=== PATIENT | male | born 1945 | race Caucasian/White ===

== ENCOUNTER 2018-05-11 19:20 | Emergency (ER) | payer OTHER ==
[~2018-05-11] VITALS: Ht 190.5 cm; Wt 93.4 kg
[~2018-05-11 19:20] MED LIST: LEVOTHYROXINE125 MCG PO; METOPROLOL SUCC25 MG PO; OMEPRAZOLE40 MG PO; PROCTOSOL-HC28.35 GM; TRIAMCINOLONE A15 G1; TUMS200 MG
--- OUTSIDE RECORDS SUMMARY | 2018-05-11 19:25 | XMS REPORT ---
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 Allergies, Adverse Reactions, Alerts This patient has no known allergies or adverse reactions. Medications This patient has no known medications. Results Test Description Test Time Test Comments Text Results Atomic Results Result Comments CT BRAIN WO [place] [address] Patient Name: MELE COCHRAN MR #: [id number] : 1945 Age/Sex: 72/M Req #: [id number] Adm Physician: Ordered by: FRED ALFONSO MD Report #: [id number] Location: ER Room/Bed: Procedure: [id number] CT/CT BRAIN WO Exam Date: 05/07/17 Exam Time: 0645 REPORT STATUS: Signed EXAMINATION: Head CT HISTORY: Dizziness COMPARISON: Head CT on 01/04/2016 and MRI 01/05/2016 TECHNIQUE: Multidetector axial images were obtained without contrast from the foramen magnum to the vertex . The images were reconstructed using brain and bone algorithms. Thin section brain images were reformatted into coronal and sagittal planes. Motion/streaking artifact limits the evaluation of the skull base and posterior cranial fossa. FINDINGS: Parenchyma: 1. Unchanged mild white matter chronic microvascular ischemic changes. 2. No mass or hemorrhage. No CT evidence of acute territorial vascular insult. Extra-axial spaces:No abnormal density. No extra-axial fluid collections Brain volume: Normal for age. Ventricles: No hydrocephalus or displacement. Arteries: No density suggestive of thrombus. Dural sinuses: No abnormal density. Extra-axial spaces: No abnormal density. Foramen magnum: No mass, Chiari malformation, or basilar invagination. Sella: No obvious mass. Paranasal/mastoid sinuses: Imaged portions unremarkable. Skull/Scalp: No lytic or blastic lesions. No fractures. IMPRESSION: 1. No acute intracranial hemorrhage or cortical infarcts. 2. Unchanged mild chronic microvascular ischemic changes. Signed by: Dr. Adalberto Alexander M.D. on 05/07/2017 7:16 AM Dictated By: ADALBERTO ALEXANDER MD 5 Transcribed By: NILAM on 05/07/17715 COPY TO: FRED ALFONSO MD
[2018-05-11 20:01] LABS: BASOPHILS % 0.7 % (0.0-1.0); EOSINOPHILS # (AUTO) 0.2 (0.0-0.4); EOSINOPHILS % 2.7 % (0.0-6.0); HEMATOCRIT 46.1 % (38.2-49.6); HEMOGLOBIN 16.8 g/dL (14.0-18.0); LYMPHOCYTES # (AUTO) 2.1 (1.0-3.2); LYMPHOCYTES % 37.7 % (18.0-39.1); MEAN CORPUSCULAR HEMOGLOBIN 34.3 pg (28-32); MEAN CORPUSCULAR HGB CONC 36.4 g/dL (31-35); MEAN CORPUSCULAR VOLUME 94.1 fL (81-99); MONOCYTES # (AUTO) 0.5 (0.2-0.8); NEUTROPHILS # (AUTO) 2.9 (2.1-6.9); NEUTROPHILS % 50.7 % (38.7-80.0); PLATELET COUNT 108 x10e3/uL (140-360); RED CELL DISTRIBUTION WIDTH 12.6 % (11.7-14.4)
[2018-05-11 20:06] LABS: INR 0.86; PROTHROMBIN TIME 12.5 seconds (11.9-14.5)
[2018-05-11 20:07] LABS: PARTIAL THROMBOPLASTIN TIME 29.5 seconds (23.8-35.5)
[2018-05-11 20:16] LABS: ALANINE AMINOTRANSFERASE 22 IU/L (0-55); ALBUMIN 4.1 g/dL (3.5-5.0); ALBUMIN/GLOBULIN RATIO 1.4 (0.8-2.0); ALKALINE PHOSPHATASE 152 IU/L (40-150); ANION GAP 14.9 mmol/L (8-16); BLOOD UREA NITROGEN 16 mg/dL (7-26); BUN/CREATININE RATIO 19 (6-25); CALCIUM 9.6 mg/dL (8.4-10.2); CARBON DIOXIDE 26 mmol/L (22-29); CHLORIDE 106 mmol/L (98-107); CREATINE KINASE 59 IU/L (30-200); CREATININE, SERUM 0.85 mg/dL (0.72-1.25); EST GLOMERULAR FILTRATION RATE > 60 ML/MIN (60-); GLUCOSE 132 mg/dL (74-118); MAGNESIUM 2.4 MG/DL (1.3-2.1); POTASSIUM 3.9 mmol/L (3.5-5.1); SODIUM 143 mmol/L (136-145)
--- NOTE | 2018-05-11 20:47 | Diagnostic Imaging Report ---
EXAM: CHEST SINGLE (PORTABLE), AP 1 view INDICATION: Chest pain COMPARISON: AP view of the chest May 11, 2018 FINDINGS: LINES/TUBES: None LUNGS: No consolidations or edema. PLEURA: No effusions or pneumothorax. HEART AND MEDIASTINUM: Normal size and contour. BONES AND SOFT TISSUES: No acute findings. IMPRESSION: No acute thoracic abnormality. Signed by: Dr. Eusebia Mackey M.D. on 05/11/2018 8:43 PM
[2018-05-12 01:13] LABS: CREATINE KINASE MB 1.6 ng/mL (0-5.0)
[2018-05-12 01:43] VITALS: BP 121/83
== END 2018-05-12 01:49 | disposition home or self-care (01) ==
LOC: ER 19:20
DX: R00.2 Palpitations (principal); Z87.891 Personal history of nicotine dependence
CPT/HCPCS: 36415; 71045; 80053; 82550; 82553; 83735; 84484; 85025; 85610; 85730; 99284

== ENCOUNTER 2018-06-06 05:14 | Inpatient (IN) | payer OTHER ==
[~2018-06-06] VITALS: Ht 190.5 cm; Wt 91.8 kg
[2018-06-06] MEDS ORDERED: CEFTRIAXONE SOD 1 GM VIAL ONE (05:27)
[2018-06-06] MEDS ORDERED: GENTAMICIN 80MG/NS 100 ML 200 ML IV ONE (05:27)
[2018-06-06] MEDS ORDERED: BELLADONNA/OPIUM 60 MG SUPP PR ONE (06:35)
[2018-06-06] MEDS ORDERED: IOPAMIDOL 610MG/1ML 300 MG/ML VIAL IV ONE (06:35)
[2018-06-06] MEDS: D5.45%NS/KCL 20MEQ 1,000 ML IV SCH ×2 (11:08→18:00)
[2018-06-06] MEDS ORDERED: DIPHENHYDRAMINE HCL 25 MG CAP PO PRN (11:15)
[2018-06-06] MEDS ORDERED: ONDANSETRON HCL INJ 2 MG/ML VIAL IV PRN (11:15)
[2018-06-06] MEDS ORDERED: DIPHENHYDRAMINE HCL INJ 50 MG/ML VIAL IM PRN (11:15)
[2018-06-06] MEDS ORDERED: ACETAMINOPHEN/CODEINE 300MG - 30MG TAB PO PRN (11:15)
[2018-06-06] MEDS ORDERED: LEVOFLOXACIN 500 MG TAB PO SCH (13:00)
[2018-06-06 15:42] VITALS: BP 106/65
[2018-06-06 16:05] VITALS: BP 106/65
[2018-06-06] MEDS: DOCUSATE SODIUM 100 MG CAP PO SCH (17:00)
[2018-06-06 17:01] VITALS: BP 106/65
[2018-06-06] MEDS: LEVOFLOXACIN 500 MG TAB PO SCH (17:18)
[2018-06-06] MEDS ORDERED: LIDOCAINE HCL 2% LOCAL INJ 5 ML SDV VIAL INJ ONE (17:44)
[2018-06-06] MEDS ORDERED: SEVOFLURANE INHAL SOLN 250 ML PEN BTL ONE (17:44)
[2018-06-06] MEDS ORDERED: DEXAMETHASONE SOD PHOS INJ 4 MG/ML VIAL ONE (17:44)
[2018-06-06] MEDS ORDERED: PROPOFOL IV EMULSION 10 MG/ML 20 ML VIAL ONE (17:44)
[2018-06-06] MEDS ORDERED: ONDANSETRON HCL INJ 2 MG/ML VIAL ONE (17:44)
[2018-06-06] MEDS ORDERED: MIDAZOLAM HCL 2 MG/2 ML VIAL ONE (17:50)
[2018-06-06] MEDS ORDERED: FENTANYL CITRATE/PF 100MCG/2 ML INJ ONE (17:50)
[2018-06-06 20:00] VITALS: BP 112/58
[2018-06-06 20:45] VITALS: BP 112/58
--- NOTE | 2018-06-06 22:40 | Operative Report ---
DATE OF PROCEDURE: June 06, 2018 PREOPERATIVE DIAGNOSES 1. Obstructive BPH. 2. Overactive bladder. POSTOPERATIVE DIAGNOSES 1. Obstructive BPH. 2. Overactive bladder. OPERATIONS PERFORMED 1. Cystourethroscopy with bilateral ureteral catheterization and retrograde ureteropyelography (separate procedure performed to evaluate the upper tracts in light of the severely overactive bladder). 2. Interpretation of retrograde ureteropyelography. 3. Supervision of fluoroscopy. No radiologist present. 4. Cystourethroscopy with transurethral resection of the prostate utilizing the plasma button electrode (separate performed for the obstructive BPH). ANESTHESIA: General. COMPLICATIONS: None. CLINICAL SUMMARY: Rik Neely is a 73-year-old man with longstanding obstructive BPH. He has failed Flomax, Jeniffer, Cardura, as well as natural supplements for treating his BPH. He has also failed transurethral microwave thermotherapy. He has urge-type urinary incontinence and elects to proceed with surgery as planned. He is aware of the risks of bleeding, infection, injury to adjacent structures, incontinence, impotence, need for additional procedures, and retrograde ejaculation and elected to proceed. OPERATIVE PROCEDURE IN DETAIL: Informed consent was verified. Rik Neely was properly identified, taken to operating room, placed on the cystoscopy table in supine position. Anesthesia was uneventfully begun. The patient was then carefully and gently repositioned in dorsal lithotomy position with all pressure points well padded. His genitalia were prepared and draped in usual sterile fashion. A 22.5-[place] cystoscope sheath with the visual obturator in place was atraumatically inserted into the patient's urethra. It was guided down the unremarkable distal urethra through some mild narrowing at the bulbar region through the normal sphincteric region through the prostate bed, were significant for mostly bilobar BPH with kissing lateral lobes and a small median lobe. Panendoscopy of urinary bladder revealed grade-1 trabeculations, but no tumors, no stones, and no diverticula. Normally positioned and configured ureteral orifices were identified. An 8-Korean catheter was used to cannulate each ureter and retrograde ureteropyelograms were performed. Interpretation of retrograde ureteropyelography: Contrast was instilled in retrograde fashion bilaterally. There were no tumors, no stones, and no diverticula. Unobstructed drainage was observed bilaterally fluoroscopically. There was tortuosity in the right ureter as it coursed over the iliac vessels. We atraumatically placed the continuous flow resectoscope sheath and then proceeded with utilizing the plasma button electrode. We vaporized the prostate from the bladder neck too, but never past the verumontanum and down to the surgical capsule circumferentially. This resulted in a wide-open prostatic channel. Excellent hemostasis was obtained with pinpoint cautery. Of note should be that we released prostatic stones at the apical region posteriorly. The resectoscope was withdrawn. Stoddard catheter was placed. It was placed in continuous irrigation with completely clear efflux. A belladonna and opium suppository was placed revealing a 40-g prostate that was smooth and non-fluctuant without any nodules. The patient was then uneventfully reversed from anesthesia and taken to recovery room in stable condition. There were no complications to the procedure. He tolerated the procedure well. Explicit postop instructions were given and will proceed with routine postoperative care. Job#: [id number] CQ
[2018-06-07] VITALS (7 sets, daily range): BP systolic 93–145; BP diastolic 53–80
[2018-06-07] MEDS: D5.45%NS/KCL 20MEQ 1,000 ML IV SCH (02:32)
[2018-06-07 05:49] LABS: BASOPHILS % 0.5 % (0.0-1.0); EOSINOPHILS # (AUTO) 0.1 (0.0-0.4); EOSINOPHILS % 1.8 % (0.0-6.0); HEMATOCRIT 43.1 % (38.2-49.6); HEMOGLOBIN 15.5 g/dL (14.0-18.0); LYMPHOCYTES # (AUTO) 1.3 (1.0-3.2); LYMPHOCYTES % 20.1 % (18.0-39.1); MEAN CORPUSCULAR HEMOGLOBIN 34.1 pg (28-32); MEAN CORPUSCULAR VOLUME 94.9 fL (81-99); MONOCYTES # (AUTO) 0.7 (0.2-0.8); MONOCYTES % 10.5 % (4.4-11.3); NEUTROPHILS # (AUTO) 4.4 (2.1-6.9); NEUTROPHILS % 66.8 % (38.7-80.0); PLATELET COUNT 111 x10e3/uL (140-360); RED BLOOD COUNT 4.54 x10e6/uL (4.3-5.7); RED CELL DISTRIBUTION WIDTH 11.9 % (11.7-14.4)
[2018-06-07 06:17] LABS: ANION GAP 8.8 mmol/L (8-16); BLOOD UREA NITROGEN 10 mg/dL (7-26); BUN/CREATININE RATIO 14 (6-25); CALCIUM 8.9 mg/dL (8.4-10.2); CARBON DIOXIDE 27 mmol/L (22-29); CHLORIDE 106 mmol/L (98-107); CREATININE, SERUM 0.74 mg/dL (0.72-1.25); EST GLOMERULAR FILTRATION RATE > 60 ML/MIN (60-); GLUCOSE 116 mg/dL (74-118); POTASSIUM 3.8 mmol/L (3.5-5.1); SODIUM 138 mmol/L (136-145)
[2018-06-07] MEDS: DOCUSATE SODIUM 100 MG CAP PO SCH ×2 (09:00→16:58)
--- NOTE | 2018-06-07 09:18 | History and Physical ---
CHIEF COMPLAINT 1. Status post cystourethroscopy with bilateral ureteral catheterization and retrograde ureteropyeloplasty. 2. Hematuria. 3. Baseline obstructive enlarged prostate, BPH along with overactive urinary bladder. SUMMARY: Patient is a 73-year-old male, patient of Dr. Arnoldo Hall, status post cystourethroscopy with bilateral ureteral catheterization and retrograde ureteropyelography. The patient is status post TURP procedures. The patient is stable at this time. He does have urinary hematuria and is getting continuous urinary bladder irrigation. The patient is otherwise stable at this time. PAST MEDICAL HISTORY: Enlarged prostate, overactive urinary bladder, hypothyroidism. PAST SURGICAL HISTORY: Noncontributory. SOCIAL HISTORY: Patient does not smoke or use alcohol. No recreational drugs. ALLERGIES: ASPIRIN AND IBUPROFEN. MEDICATIONS: Levothyroxine 125 mcg daily. REVIEW OF SYSTEMS: Hematuria. PHYSICAL EXAMINATION VITAL SIGNS: Temperature is 98, blood pressure 145/70, pulse rate 66, respirations 18. GENERAL: Patient is not in acute distress. HEENT: Normocephalic, atraumatic and nonicteric. NECK: Supple grossly. PULMONARY: Clear. CARDIOVASCULAR: Regular rate and rhythm. ABDOMEN: Soft. : Stoddard catheter in place. Hematuria. EXTREMITIES: No cyanosis or edema. NEUROLOGICAL: No gross focal deficit. LABORATORY: Sodium is 138, potassium 3.8, chloride 106, bicarb 27, BUN 10, creatinine 0.7, glucose 116. WBC 6.5, hemoglobin 15.5, hematocrit 43, and platelets are 111,000. IMPRESSION 1. Status post transurethral resection of prostate secondary to enlarged prostate. 2. Status post cystourethroscopy with bilateral ureteral catheterization and retrograde ureteropyelography. 3. Hypothyroidism, baseline. PLAN: Continue home medications. Continue with urinary bladder irrigation. Repeat lab work in the morning. Will monitor the patient closely. The patient will not be discharged home until the urine is clean without clot and bleeding. Job#: [id number] GUNNAR
[2018-06-07] MEDS: SODIUM CHLORIDE 0.9% 1000ML 1,000 ML IV SCH ×2 (09:45→18:30)
[2018-06-07] MEDS: LEVOTHYROXINE SODIUM 125 MCG TAB PO SCH (09:56)
[2018-06-07] MEDS: LEVOFLOXACIN 500 MG TAB PO SCH (16:58)
[2018-06-08] VITALS: BP 108/63
[2018-06-08 02:03] VITALS: BP 108/63
[2018-06-08] MEDS: SODIUM CHLORIDE 0.9% 1000ML 1,000 ML IV SCH ×2 (03:38→14:30)
[2018-06-08 04:00] VITALS: BP 107/63
[2018-06-08] MEDS: LEVOTHYROXINE SODIUM 125 MCG TAB PO SCH (05:24)
[2018-06-08 06:08] LABS: BASOPHILS % 0.5 % (0.0-1.0); EOSINOPHILS # (AUTO) 0.2 (0.0-0.4); EOSINOPHILS % 3.1 % (0.0-6.0); HEMATOCRIT 43.3 % (38.2-49.6); HEMOGLOBIN 15.4 g/dL (14.0-18.0); LYMPHOCYTES # (AUTO) 1.3 (1.0-3.2); LYMPHOCYTES % 20.5 % (18.0-39.1); MEAN CORPUSCULAR HEMOGLOBIN 33.9 pg (28-32); MEAN CORPUSCULAR HGB CONC 35.6 g/dL (31-35); MEAN CORPUSCULAR VOLUME 95.4 fL (81-99); MONOCYTES # (AUTO) 0.6 (0.2-0.8); MONOCYTES % 10.2 % (4.4-11.3); NEUTROPHILS % 65.5 % (38.7-80.0); PLATELET COUNT 107 x10e3/uL (140-360); RED BLOOD COUNT 4.54 x10e6/uL (4.3-5.7); RED CELL DISTRIBUTION WIDTH 12.1 % (11.7-14.4)
[2018-06-08 08:00] VITALS: BP 112/73
[2018-06-08] MEDS: DOCUSATE SODIUM 100 MG CAP PO SCH ×2 (08:38→17:06)
[2018-06-08 09:27] LABS: ANION GAP 11.8 mmol/L (8-16); BLOOD UREA NITROGEN 10 mg/dL (7-26); BUN/CREATININE RATIO 13 (6-25); CALCIUM 8.9 mg/dL (8.4-10.2); CARBON DIOXIDE 25 mmol/L (22-29); CHLORIDE 108 mmol/L (98-107); CREATININE, SERUM 0.75 mg/dL (0.72-1.25); EST GLOMERULAR FILTRATION RATE > 60 ML/MIN (60-); GLUCOSE 97 mg/dL (74-118); POTASSIUM 3.8 mmol/L (3.5-5.1); SODIUM 141 mmol/L (136-145)
[2018-06-08 13:25] VITALS: BP 103/66
[2018-06-08 16:59] VITALS: BP 126/83
[2018-06-08] MEDS: LEVOFLOXACIN 500 MG TAB PO SCH (17:06)
== END 2018-06-08 18:30 | disposition home or self-care (01) | DRG 713 ==
LOC: OR 05:14 → PACU V 11:10 → MED/SURG 15:02
PROVIDERS: ADMIT Internal Medicine; ATTEND Internal Medicine
PROC: BT141ZZ Fluoroscopy of Kidneys, Ureters and Bladder using Low Osmolar Contrast (ICD-10-PCS; 2018-06-06)
PROC: 0VT08ZZ Resection of Prostate, Via Natural or Artificial Opening Endoscopic (ICD-10-PCS; principal; 2018-06-06 07:00)
PROC: 0TJB8ZZ Inspection of Bladder, Via Natural or Artificial Opening Endoscopic (ICD-10-PCS; 2018-06-06 07:00)
DX: N40.1 Benign prostatic hyperplasia with lower urinary tract symptoms (principal); N13.8 Other obstructive and reflux uropathy; E03.9 Hypothyroidism, unspecified; N32.81 Overactive bladder; N39.41 Urge incontinence; R35.0 Frequency of micturition; N52.9 Male erectile dysfunction, unspecified
CPT/HCPCS: 36415; 74420; 80048; 83735; 84132; 85025; 96360; J0696; J1100; J1580; J2001; J2250; J2405; J7030

== ENCOUNTER 2018-07-11 11:25 | Emergency (ER) | payer MEDICARE, OTHER ==
[~2018-07-11] VITALS: Ht 190.5 cm; Wt 91.6 kg
--- NOTE | 2018-07-11 11:38 | NUR ---
DR. CARDENAS CALLED, HE IS COVERING FOR Jus LITTLEJOHN
[2018-07-11] MEDS ORDERED: LIDOCAINE JELLY 2% 10ML URO-JET TOP ONE (12:15)
--- NOTE | 2018-07-11 12:20 | NUR ---
attempted to insert armenta, 20fr coude unsucessful. met restriction less then 1cm in urethra. informed ER MD. went to get smaller catheters. upon return, patient expressed that he went to the restroom for a BM and was able to void. reported he felt he emptied his bladder. informed ER MD was directed to complete bladder scan. 62ml per bladder scan. report printed, shown to er md and placed into chart.
[2018-07-11 14:17] LABS: CLARITY,URINE SL CLOUDY (CLEAR); COLOR,URINE STRAW (YELLOW); LEUKOCYTE ESTERASE ,URINE TRACE (NEGATIVE); NITRITE,URINE NEGATIVE (NEGATIVE); PROTEIN,URINE DIPSTICK 2+ (NEGATIVE)
[2018-07-11 14:18] LABS: BILIRUBIN,URINE NEGATIVE (NEGATIVE); KETONES,URINE NEGATIVE (NEGATIVE); URINE UROBILINOGEN 0.2 mg/dL (0.2 - 1)
[2018-07-11 14:27] LABS: BACTERIA,URINE RARE /HPF; RBC,URINE 21-50 /HPF (0-5); WBC,URINE (MAN) 0-5 /HPF (0-5)
== END 2018-07-11 15:27 | disposition home or self-care (01) ==
LOC: ER 11:25
DX: R33.9 Retention of urine, unspecified (principal); E03.9 Hypothyroidism, unspecified
CPT/HCPCS: 51700; 81001; 87086; 99284

== ENCOUNTER 2018-07-27 08:53 | Emergency (ER) | payer MEDICARE ==
[~2018-07-27] VITALS: Ht 190.5 cm; Wt 93.4 kg
[2018-07-27] MEDS ORDERED: LIDOCAINE JELLY 2% 10ML URO-JET ONE (09:31)
[2018-07-27] MEDS ORDERED: LIDOCAINE JELLY 2% 10ML URO-JET TOP ONE (09:45)
[2018-07-27 09:53] LABS: BASOPHILS % 0.5 % (0.0-1.0); EOSINOPHILS # (AUTO) 0.1 (0.0-0.4); EOSINOPHILS % 1.9 % (0.0-6.0); HEMATOCRIT 46.7 % (38.2-49.6); HEMOGLOBIN 16.4 g/dL (14.0-18.0); LYMPHOCYTES % 16.6 % (18.0-39.1); MEAN CORPUSCULAR HEMOGLOBIN 33.1 pg (28-32); MEAN CORPUSCULAR HGB CONC 35.1 g/dL (31-35); MEAN CORPUSCULAR VOLUME 94.3 fL (81-99); MONOCYTES # (AUTO) 0.4 (0.2-0.8); MONOCYTES % 6.6 % (4.4-11.3); NEUTROPHILS # (AUTO) 4.6 (2.1-6.9); NEUTROPHILS % 74.1 % (38.7-80.0); PLATELET COUNT 106 x10e3/uL (140-360); RED BLOOD COUNT 4.95 x10e6/uL (4.3-5.7); RED CELL DISTRIBUTION WIDTH 12.5 % (11.7-14.4)
[2018-07-27 10:05] LABS: CLARITY,URINE SL CLOUDY (CLEAR); COLOR,URINE YELLOW (YELLOW); LEUKOCYTE ESTERASE ,URINE NEGATIVE (NEGATIVE); NITRITE,URINE NEGATIVE (NEGATIVE); PROTEIN,URINE DIPSTICK 2+ (NEGATIVE)
[2018-07-27 10:06] LABS: BILIRUBIN,URINE NEGATIVE (NEGATIVE); KETONES,URINE NEGATIVE (NEGATIVE); URINE UROBILINOGEN 0.2 mg/dL (0.2 - 1)
[2018-07-27 10:12] LABS: ALANINE AMINOTRANSFERASE 18 IU/L (0-55); ALBUMIN/GLOBULIN RATIO 1.4 (0.8-2.0); ALKALINE PHOSPHATASE 105 IU/L (40-150); ANION GAP 13.1 mmol/L (8-16); BLOOD UREA NITROGEN 16 mg/dL (7-26); BUN/CREATININE RATIO 20 (6-25); CALCIUM 9.2 mg/dL (8.4-10.2); CARBON DIOXIDE 24 mmol/L (22-29); CHLORIDE 112 mmol/L (98-107); CREATININE, SERUM 0.82 mg/dL (0.72-1.25); EST GLOMERULAR FILTRATION RATE > 60 ML/MIN (60-); GLUCOSE 102 mg/dL (74-118); POTASSIUM 4.1 mmol/L (3.5-5.1); SODIUM 145 mmol/L (136-145)
[2018-07-27 10:14] LABS: RBC,URINE >50 /HPF (0-5); WBC,URINE (MAN) 21-50 /HPF (0-5)
[2018-07-27 10:15] LABS: BACTERIA,URINE FEW /HPF; EPITHELIAL CELLS,URINE FEW /LPF
[2018-07-27] MEDS ORDERED: FLOMAX0.4 MG PO (10:41)
[2018-07-27] MEDS ORDERED: KEFLEX500 MG PO (10:41)
[2018-07-27 10:51] VITALS: BP 124/76
--- NOTE | 2018-07-27 11:15 | NUR ---
Leg bag applied to patient and patient verbalized understanding between switching inbetween leg bag and overnight bag.
[2018-07-27] MEDS ORDERED: HYDROMORPHONE 2MG/ML 2 MG/ML ML IV ONE (14:00)
== END 2018-07-27 11:16 | disposition home or self-care (01) ==
LOC: ER 08:53
DX: R33.9 Retention of urine, unspecified (principal); N40.1 Benign prostatic hyperplasia with lower urinary tract symptoms; N30.91 Cystitis, unspecified with hematuria
CPT/HCPCS: 36415; 51702; 80053; 81001; 85025; 87086; 93005; 99283; J1170; 51700

== ENCOUNTER 2018-07-28 16:16 | Emergency (ER) | payer MEDICARE, OTHER ==
[~2018-07-28] VITALS: Ht 190.5 cm; Wt 93.4 kg
[~2018-07-28 16:16] MED LIST changes: +FLOMAX0.4 MG PO; +KEFLEX500 MG PO
[2018-07-28] MEDS ORDERED: LIDOCAINE JELLY 2% 10ML URO-JET ONE (19:08)
[2018-07-28 19:45] LABS: BILIRUBIN,URINE NEGATIVE (NEGATIVE); CLARITY,URINE HAZY (CLEAR); COLOR,URINE YELLOW (YELLOW); KETONES,URINE TRACE (NEGATIVE); LEUKOCYTE ESTERASE ,URINE 1+ (NEGATIVE); NITRITE,URINE NEGATIVE (NEGATIVE); PROTEIN,URINE DIPSTICK NEGATIVE (NEGATIVE); URINE UROBILINOGEN 0.2 mg/dL (0.2 - 1)
[2018-07-28 19:48] LABS: WBC,URINE (MAN) 0-5 /HPF (0-5)
--- NOTE | 2018-07-28 20:39 | NUR ---
BEDSIDE CATH SWITCHED TO LEG BAG. PT HAD 150CC CLEAR URINE NOTED IN VELIZ. BAG WAS ATTACHED WITHOUT INCIDENT. SMALL AMOUT OF URINE NOTED IN LEG BAG. PT GIVEN INSTRUCTIONS ON PROPER USE OF VELIZ AND INSTRUCTIONS ON FOLLOW UP AND S/S TO WATCH FOR AND WHEN AND IF HE SHOULD RETURN. VERBALIZED UNDERSTANDING.
[2018-07-28 20:42] VITALS: BP 119/68
== END 2018-07-28 20:45 | disposition home or self-care (01) ==
LOC: ER 16:16
DX: Z46.6 Encounter for fitting and adjustment of urinary device (principal); E03.9 Hypothyroidism, unspecified
CPT/HCPCS: 81001; 87086; 99282

== ENCOUNTER 2019-08-07 07:14 | Observation (INO) | payer MEDICARE ==
--- NOTE | 2019-08-05 13:49 | Diagnostic Imaging Report ---
EXAMINATION: CHEST 2 VIEWS INDICATION: Pre-operative COMPARISON: Chest radiograph of 05/11/2018 FINDINGS: LINES/TUBES:None LUNGS:The lungs are well-inflated. No focal consolidation or pulmonary edema. PLEURA:No pleural effusion or pneumothorax. MEDIASTINUM:The cardiomediastinal silhouette appears normal in size and shape. BONES/SOFT TISSUES:No acute osseous injury. ABDOMEN:No free air under the diaphragm. IMPRESSION: No focal pneumonia or pulmonary edema. Signed by: Beth Michel MD on 08/05/2019 1:46 PM
[2019-08-05 14:02] LABS: BASOPHILS % 0.6 % (0.0-1.0); EOSINOPHILS # (AUTO) 0.1 (0.0-0.4); EOSINOPHILS % 2.2 % (0.0-6.0); HEMATOCRIT 46.3 % (38.2-49.6); HEMOGLOBIN 16.3 g/dL (14.0-18.0); LYMPHOCYTES # (AUTO) 1.6 (1.0-3.2); LYMPHOCYTES % 31.5 % (18.0-39.1); MEAN CORPUSCULAR HEMOGLOBIN 32.9 pg (28-32); MEAN CORPUSCULAR HGB CONC 35.2 g/dL (31-35); MEAN CORPUSCULAR VOLUME 93.3 fL (81-99); MONOCYTES # (AUTO) 0.5 (0.2-0.8); MONOCYTES % 9.5 % (4.4-11.3); NEUTROPHILS # (AUTO) 2.8 (2.1-6.9); PLATELET COUNT 131 x10e3/uL (140-360); RED BLOOD COUNT 4.96 x10e6/uL (4.3-5.7); RED CELL DISTRIBUTION WIDTH 12.7 % (11.7-14.4)
[2019-08-05 14:20] LABS: ANION GAP 15.5 mmol/L (8-16); BLOOD UREA NITROGEN 12 mg/dL (7-26); BUN/CREATININE RATIO 15 (6-25); CALCIUM 9.9 mg/dL (8.4-10.2); CARBON DIOXIDE 27 mmol/L (22-29); CHLORIDE 107 mmol/L (98-107); CREATININE, SERUM 0.78 mg/dL (0.72-1.25); EST GLOMERULAR FILTRATION RATE > 60 ML/MIN (60-); GLUCOSE 102 mg/dL (74-118); SODIUM 144 mmol/L (136-145)
[2019-08-05 14:25] LABS: POTASSIUM 5.5 mmol/L (3.5-5.1)
[~2019-08-07] VITALS: Ht 190.5 cm; Wt 96.2 kg
[~2019-08-07 07:14] MED LIST changes: +NYSTATIN1 EAC2 TOP; +PATANOL5 ML OP
[2019-08-07] MEDS ORDERED: GENTAMICIN 80MG/NS 100 ML 200 ML IV ONE (07:54)
[2019-08-07] MEDS ORDERED: CEFTRIAXONE SOD 1 GM/NS 50 ML 50 ML IV ONE (07:54)
[2019-08-07] MEDS ORDERED: B&O 60MG R/S 60 MG SUPP PR ONE (09:17)
[2019-08-07] MEDS ORDERED: IOPAMIDOL 300MG/ML 50ML INFUS..BTL IV ONE (09:18)
[2019-08-07] MEDS ORDERED: ONDANSETRON HCL INJ 2MG/ML 2ML 2 MG/ML VIAL IV PRN (11:00)
[2019-08-07] MEDS ORDERED: ACETAMINOPHEN/CODEINE 300MG - 30MG TAB PO PRN (11:00)
[2019-08-07] MEDS ORDERED: DIPHENHYDRAMINE HCL 25 MG CAP PO PRN (11:00)
[2019-08-07] MEDS ORDERED: B&O 60MG R/S 60 MG SUPP PR PRN (11:00)
[2019-08-07] MEDS ORDERED: MORPHINE SULFATE 2 MG/ML SYR 1ML ONE (11:48)
[2019-08-07 12:40] VITALS: BP 129/71
--- NOTE | 2019-08-07 12:46 | NUR ---
The pt. was adm from [facility] s/p TURP with c b i irrigation and iv fluids infusing. He was placed in the room but has need for bowel movement and therefore was assisted to the toilet.
[2019-08-07] MEDS: PHENAZOPYRIDINE HCL 100 MG TAB PO SCH ×2 (13:00→17:02)
[2019-08-07 13:15] VITALS: BP 129/71
[2019-08-07 13:48] LABS: BASOPHILS % 0.2 % (0.0-1.0); EOSINOPHILS % 0.2 % (0.0-6.0); HEMATOCRIT 41.8 % (38.2-49.6); HEMOGLOBIN 15.2 g/dL (14.0-18.0); LYMPHOCYTES # (AUTO) 0.5 (1.0-3.2); LYMPHOCYTES % 9.4 % (18.0-39.1); MEAN CORPUSCULAR HEMOGLOBIN 33.6 pg (28-32); MEAN CORPUSCULAR HGB CONC 36.4 g/dL (31-35); MEAN CORPUSCULAR VOLUME 92.3 fL (81-99); MONOCYTES # (AUTO) 0.1 (0.2-0.8); MONOCYTES % 1.7 % (4.4-11.3); NEUTROPHILS # (AUTO) 5.1 (2.1-6.9); NEUTROPHILS % 88.2 % (38.7-80.0); PLATELET COUNT 97 x10e3/uL (140-360); RED BLOOD COUNT 4.53 x10e6/uL (4.3-5.7); RED CELL DISTRIBUTION WIDTH 12.4 % (11.7-14.4)
[2019-08-07 14:09] LABS: BLOOD UREA NITROGEN 10 mg/dL (7-26); BUN/CREATININE RATIO 14 (6-25); CALCIUM 8.4 mg/dL (8.4-10.2); CARBON DIOXIDE 25 mmol/L (22-29); CHLORIDE 110 mmol/L (98-107); EST GLOMERULAR FILTRATION RATE > 60 ML/MIN (60-); GLUCOSE 158 mg/dL (74-118); SODIUM 142 mmol/L (136-145)
[2019-08-07] MEDS: DOCUSATE SODIUM 100 MG CAP PO SCH (16:41)
[2019-08-07] MEDS: D5.45%NS/KCL 20MEQ 1,000 ML IV SCH ×2 (17:02→18:10)
--- NOTE | 2019-08-07 17:34 | NUR ---
The pt. continues with c bi and the urine continues to be clear to pink.
[2019-08-07 17:48] VITALS: BP 133/74
[2019-08-07] MEDS ORDERED: EPHEDRINE SULFATE INJ 50 MG/ML VIAL ONE (18:37)
[2019-08-07] MEDS ORDERED: DEXAMETHASONE SOD PHOS INJ 4 MG/ML VIAL ONE (18:37)
[2019-08-07] MEDS ORDERED: LIDOCAINE HCL 2% LOCAL INJ 5 ML SDV VIAL INJ ONE (18:37)
[2019-08-07] MEDS ORDERED: SEVOFLURANE INHAL SOLN 250 ML PEN BTL ONE (18:37)
[2019-08-07] MEDS ORDERED: ONDANSETRON HCL INJ 2MG/ML 2ML 2 MG/ML VIAL ONE (18:37)
[2019-08-07] MEDS ORDERED: PROPOFOL IV EMULSION 10 MG/ML 20 ML VIAL ONE (18:37)
--- NOTE | 2019-08-07 19:00 | NUR ---
Received bedside report from day nurse. Patient resting in bed, no s/s of distress or c/o pain at this time. CBI and all safety measures in place. Will continue to monitor.
[2019-08-07] MEDS ORDERED: MIDAZOLAM HCL 2 MG/2 ML VIAL ONE (19:13)
[2019-08-07] MEDS ORDERED: FENTANYL CITRATE/PF 100MCG/2 ML INJ ONE (19:13)
[2019-08-07 19:30] VITALS: BP 116/67
[2019-08-07 20:51] VITALS: BP 116/67
[2019-08-07 23:51] VITALS: BP 115/61
[2019-08-08] VITALS (7 sets, daily range): BP systolic 90–112; BP diastolic 53–67
[2019-08-08] MEDS: D5.45%NS/KCL 20MEQ 1,000 ML IV SCH (00:34)
[2019-08-08 05:42] LABS: BASOPHILS % 0.1 % (0.0-1.0); EOSINOPHILS # (AUTO) 0.2 (0.0-0.4); HEMATOCRIT 41.8 % (38.2-49.6); HEMOGLOBIN 14.8 g/dL (14.0-18.0); LYMPHOCYTES # (AUTO) 0.6 (1.0-3.2); LYMPHOCYTES % 6.4 % (18.0-39.1); MEAN CORPUSCULAR HEMOGLOBIN 32.7 pg (28-32); MEAN CORPUSCULAR HGB CONC 35.4 g/dL (31-35); MEAN CORPUSCULAR VOLUME 92.3 fL (81-99); MONOCYTES # (AUTO) 0.5 (0.2-0.8); MONOCYTES % 5.9 % (4.4-11.3); NEUTROPHILS # (AUTO) 7.8 (2.1-6.9); NEUTROPHILS % 85.3 % (38.7-80.0); PLATELET COUNT 100 x10e3/uL (140-360); RED BLOOD COUNT 4.53 x10e6/uL (4.3-5.7); RED CELL DISTRIBUTION WIDTH 12.5 % (11.7-14.4)
[2019-08-08 05:59] LABS: ANION GAP 13.5 mmol/L (8-16); BLOOD UREA NITROGEN 7 mg/dL (7-26); BUN/CREATININE RATIO 9 (6-25); CALCIUM 8.8 mg/dL (8.4-10.2); CARBON DIOXIDE 23 mmol/L (22-29); CHLORIDE 108 mmol/L (98-107); CREATININE, SERUM 0.74 mg/dL (0.72-1.25); EST GLOMERULAR FILTRATION RATE > 60 ML/MIN (60-); GLUCOSE 136 mg/dL (74-118); POTASSIUM 4.5 mmol/L (3.5-5.1); SODIUM 140 mmol/L (136-145)
--- NOTE | 2019-08-08 07:19 | NUR ---
Bedside report given to day nurse. Patient resting in bed, no s/s of distress or c/o pain at this time. All safety measures in place.
[2019-08-08] MEDS ORDERED: ONDANSETRON HCL 4 MG ORAL DISINTEGRATING TAB PO PRN (08:15)
[2019-08-08] MEDS: PHENAZOPYRIDINE HCL 100 MG TAB PO SCH ×3 (09:35→20:04)
[2019-08-08] MEDS: CEFTRIAXONE SOD 1 GM/NS 50 ML 50 ML IV SCH (09:35)
[2019-08-08] MEDS: DOCUSATE SODIUM 100 MG CAP PO SCH ×2 (09:35→16:11)
--- NOTE | 2019-08-08 09:41 | NUR ---
Patient a/ox3, pleasant and Stoddard running clear yellow urine, rounds by Dr. Gupta and will d/c Stoddard tomorrow and discharge tomorrow. Patient has a history of bleeding.
--- NOTE | 2019-08-08 15:07 | NUR ---
Patient OOB and ambulated hallway, Stoddard in place still draining, no distress, sitting up on chair in the room
--- NOTE | 2019-08-08 19:11 | NUR ---
Rounds completed, report given to on coming nurse, call light within reach, safety in place,
--- NOTE | 2019-08-08 20:15 | NUR ---
PATIENT AOX4, NO SIGNS OF DISTRESS NOTED. PATIENT HAS CONTINUOS IRRIGATION AND CATHETER INTACT AND PATENT, COMPLAINS OF NO PAIN AT THIS TIME. PATIENT HAS BEEN AMBULATORY AND IS AWARE OF POSSIBLE REMOVAL OF VELIZ THE FOLLOWING DAY. BED IS IN LOW POSITION, SIDE RAILS ARE UP, CALL LIGHT WITHIN REACH, CONTINUING TO MONITOR.
[2019-08-09 00:31] VITALS: BP 105/64
[2019-08-09 05:48] LABS: BASOPHILS % 0.2 % (0.0-1.0); EOSINOPHILS # (AUTO) 0.3 (0.0-0.4); EOSINOPHILS % 4.7 % (0.0-6.0); HEMATOCRIT 40.5 % (38.2-49.6); HEMOGLOBIN 14.4 g/dL (14.0-18.0); LYMPHOCYTES # (AUTO) 0.8 (1.0-3.2); LYMPHOCYTES % 13.7 % (18.0-39.1); MEAN CORPUSCULAR HEMOGLOBIN 32.7 pg (28-32); MEAN CORPUSCULAR HGB CONC 35.6 g/dL (31-35); MONOCYTES # (AUTO) 0.4 (0.2-0.8); MONOCYTES % 7.3 % (4.4-11.3); NEUTROPHILS # (AUTO) 4.1 (2.1-6.9); NEUTROPHILS % 73.9 % (38.7-80.0); PLATELET COUNT 86 x10e3/uL (140-360); RED CELL DISTRIBUTION WIDTH 12.2 % (11.7-14.4)
[2019-08-09 06:27] LABS: ANION GAP 13.7 mmol/L (8-16); BLOOD UREA NITROGEN 10 mg/dL (7-26); BUN/CREATININE RATIO 15 (6-25); CALCIUM 8.8 mg/dL (8.4-10.2); CARBON DIOXIDE 24 mmol/L (22-29); CHLORIDE 107 mmol/L (98-107); CREATININE, SERUM 0.67 mg/dL (0.72-1.25); EST GLOMERULAR FILTRATION RATE > 60 ML/MIN (60-); GLUCOSE 101 mg/dL (74-118); POTASSIUM 3.7 mmol/L (3.5-5.1); SODIUM 141 mmol/L (136-145)
[2019-08-09] MEDS ORDERED: LEVOTHYROXINE SODIUM 125 MCG TAB PO SCH (06:30)
--- NOTE | 2019-08-09 07:00 | NUR ---
Received bedside shift report from LON Bush. Patient awake at this time, denies pain with no visible signs of distress noted. Call light within reach.
[2019-08-09 08:40] VITALS: BP 105/68
[2019-08-09 08:54] VITALS: BP 105/68
[2019-08-09] MEDS ORDERED: OLOPATADINE 5 ML BTL OP SCH (09:00)
[2019-08-09] MEDS: DOCUSATE SODIUM 100 MG CAP PO SCH (09:46)
[2019-08-09] MEDS: CEFTRIAXONE SOD 1 GM/NS 50 ML 50 ML IV SCH (09:46)
[2019-08-09] MEDS: PHENAZOPYRIDINE HCL 100 MG TAB PO SCH ×2 (09:47→13:36)
[2019-08-09 12:23] VITALS: BP 98/56
--- NOTE | 2019-08-09 14:24 | NUR ---
PT HAS VOIDED 5 TIMES SINCE VELIZ REMOVAL. DARK ORANGE TO CLEAR ORANGE WITH 0 BLOOD CLOTS.
--- NOTE | 2019-08-09 14:25 | NUR ---
VILMA FROM THE STANDPOINT OF DR. LITTLEJOHN FOR PT TO DISCHARGE HOME.
--- NOTE | 2019-10-02 01:52 | Operative Report ---
DATE OF PROCEDURE: 08/07/2019 SURGEON: Manoj Gupta MD PREOPERATIVE DIAGNOSES: 1. Obstructive benign prostatic hypertrophy. 2. Incomplete bladder emptying. POSTOPERATIVE DIAGNOSES: 1. Obstructive benign prostatic hypertrophy. 2. Incomplete bladder emptying. 3. 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 OPERATIONS PERFORMED: 1. Cystourethroscopy with calibration and dilation of urethral stricture disease (separate procedure performed for the fossa navicularis stricture). 2. Cystourethroscopy with bilateral ureteral catheterization and retrograde ureteropyelography (separate procedure performed for the incomplete bladder emptying). 3. Interpretation of retrograde ureteropyelography. 4. Supervision of fluoroscopy, no radiologist present. 5. Cystourethroscopy with transurethral resection of the prostate utilizing a plasma button electrode. ANESTHESIA: General. COMPLICATIONS: None. CLINICAL SUMMARY: Rik Neely is a 74-year-old man with obstructive BPH. He has cancer of the prostate and is on Lupron hormone therapy. The patient is status post transurethral resection of prostate in 2018. Evaluation of the cystoscopy revealed residual obstructing apical tissue as well as wide caliber bladder neck contracture. The patient is brought for the above procedures. He is aware of the risks of bleeding, infection, injury to adjacent structures, need for additional procedures, and elected to proceed. OPERATIVE PROCEDURE IN DETAIL: Informed consent was verified. Rik Neely was properly identified, taken to the operating room, and placed on the cystoscopy table in supine position. Anesthesia was uneventfully begun. The patient was then carefully and gently repositioned in dorsal lithotomy position with all pressure points well padded. His genitalia were prepared and draped in usual sterile fashion. A 22.5-[place] cystoscope sheath with the visual obturator in place could not be placed past the fossa navicularis. It was calibrated at 18-[place] in size and dilated to 30-[place] in size utilizing female sounds. We then reintroduced the cystoscope sheath and was guided down the otherwise unremarkable urethra to the bulbar region. There, we could visualize normal sphincteric region. We went into the patient's prostate bed, which exhibited residual caving in the apical prostatic tissue. There was also wide caliber bladder neck contracture, which may not be clinically significant. We went to the patient's bladder. Panendoscopy revealed trabeculations, but no tumors, no stones, and no diverticula. Normally positioned configured ureteral orifices were identified. An 8-[place] catheter was used to cannulate the left ureter and retrograde ureteropyelograms were performed. It was then inserted into the right ureter and retrograde ureteropyelography was performed. Interpretation greater than retrograde ureteropyelography contrast was instilled in a retrograde fashion bilaterally. There were no tumors, no stones, and no diverticula. Unobstructed drainage was observed bilaterally fluoroscopically. The cystoscope was withdrawn. The resectoscope sheath was atraumatically placed with the obturator in place. We then utilized the plasma button electrode to vaporize the prostate bed from the bladder neck to maneuver, passed the verumontanum and down the surgical capsule. Pinpoint electrocautery was utilized to achieve hemostasis. The bladder neck following this procedure was wide open. The resectoscope was withdrawn and Stoddard catheter was placed. It was irrigated to and fro to ensure it worked properly. It was placed in continuous irrigation with completely clear efflux. A belladonna and opium suppository were placed revealing a 40 g prostate, smooth and non-fluctuant without any nodules, and the patient was uneventfully reversed from anesthesia and taken to recovery room in stable condition. There were no complications to the procedure. He tolerated the procedure well. Explicit postop instructions and orders were left on the chart. We will monitor the patient during this hospitalization, of course follow him indefinitely. Plans will be to follow the patient up in September for his next shot of 6 units of Lupron. Manoj Gupta MD [place]/MODL /[id number] cc: Arnoldo Hall MD
== END 2019-08-09 15:33 | disposition home or self-care (01) ==
LOC: OR 07:14 → INTOOBSV 10:57 → PACU V 10:57 → MED/SURG 12:35
PROVIDERS: ADMIT Internal Medicine; ATTEND Internal Medicine
DX: M19.90 Unspecified osteoarthritis, unspecified site (principal); E03.9 Hypothyroidism, unspecified
CPT/HCPCS: 36415; 51700; 71046; 74420; 80048; 83735; 84132; 85025; 93005; C1758; G0378; J0696; J1100; J1580; J2001; J2250; J2270; J2405; J3010; Q0162

== ENCOUNTER → 2020-10-15 | Day surgery (SDC) | payer MEDICARE ==
[2020-10-12 10:58] LABS: BASOPHILS % 0.8 % (0.0-1.0); EOSINOPHILS # (AUTO) 0.2 (0.0-0.4); EOSINOPHILS % 3.4 % (0.0-6.0); HEMATOCRIT 45.9 % (38.2-49.6); HEMOGLOBIN 16.5 g/dL (14.0-18.0); LYMPHOCYTES # (AUTO) 1.5 (1.0-3.2); LYMPHOCYTES % 31.4 % (18.0-39.1); MEAN CORPUSCULAR HEMOGLOBIN 33.1 pg (28-32); MEAN CORPUSCULAR HGB CONC 35.9 g/dL (31-35); MEAN CORPUSCULAR VOLUME 92.2 fL (81-99); MONOCYTES # (AUTO) 0.5 (0.2-0.8); MONOCYTES % 10.6 % (4.4-11.3); NEUTROPHILS # (AUTO) 2.5 (2.1-6.9); NEUTROPHILS % 53.6 % (38.7-80.0); PLATELET COUNT 134 x10e3/uL (140-360); RED BLOOD COUNT 4.98 x10e6/uL (4.3-5.7); RED CELL DISTRIBUTION WIDTH 12.4 % (11.7-14.4)
[~2020-10-15] MED LIST changes: +FENTANYL CITRATE/PF 100MCG/2 ML INJ ONE; +LIDOCAINE HCL 2% LOCAL INJ 5 ML SDV VIAL INJ ONE; +MIDAZOLAM HCL 2 MG/2 ML VIAL ONE; +PROPOFOL IV EMULSION 10 MG/ML 20 ML VIAL ONE
[2020-10-15 09:55] VITALS: BP 118/72
== END | disposition home or self-care (01) ==
LOC: OR 06:09
PROVIDERS: ATTEND Internal Medicine Gastroenterology
DX: K29.50 Unspecified chronic gastritis without bleeding (principal); K20.90 Esophagitis, unspecified without bleeding; K21.9 Gastro-esophageal reflux disease without esophagitis; Z71.3 Dietary counseling and surveillance; E66.3 Overweight; Z88.6 Allergy status to analgesic agent; Z88.8 Allergy status to other drugs, medicaments and biological substances; Z01.810 Encounter for preprocedural cardiovascular examination; Z01.812 Encounter for preprocedural laboratory examination; Z20.822 Contact with and (suspected) exposure to COVID-19; Z68.28 Body mass index [BMI] 28.0-28.9, adult; Z85.46 Personal history of malignant neoplasm of prostate
CPT/HCPCS: 36415; 43233; 43239; 85025; 93005; J2001; J2250; J2704; J3010; U0002

== ENCOUNTER 2022-07-30 08:06 | Emergency (ER) | payer OTHER ==
[~2022-07-30] VITALS: Ht 190.5 cm; Wt 96.2 kg
[~2022-07-30 08:06] MED LIST changes: -FENTANYL CITRATE/PF 100MCG/2 ML INJ ONE; -LIDOCAINE HCL 2% LOCAL INJ 5 ML SDV VIAL INJ ONE; -MIDAZOLAM HCL 2 MG/2 ML VIAL ONE; -PROPOFOL IV EMULSION 10 MG/ML 20 ML VIAL ONE
[2022-07-30] MEDS ORDERED: TETANUS/DIPHTHERIA TOX ADULT 0.5 ML SYR IM ONE (08:30)
[2022-07-30] MEDS ORDERED: ACETAMINOPHEN 325 MG TAB PO ONE (08:30)
== END 2022-07-30 10:50 | disposition home or self-care (01) ==
LOC: ER 08:15
DX: S80.02XA Contusion of left knee, initial encounter (principal); S90.511A Abrasion, right ankle, initial encounter; W07.XXXA Fall from chair, initial encounter; Y92.89 Other specified places as the place of occurrence of the external cause; E03.9 Hypothyroidism, unspecified
CPT/HCPCS: 90714; 99283

== ENCOUNTER 2024-01-08 08:26 | Observation (INO) | payer MEDICARE ==
[2024-01-05 10:09] LABS: BASOPHILS % 0.9 % (0.0-1.0); EOSINOPHILS # (AUTO) 0.1 (0.0-0.4); EOSINOPHILS % 2.6 % (0.0-6.0); HEMATOCRIT 44.8 % (38.2-49.6); HEMOGLOBIN 15.6 g/dL (14.0-18.0); LYMPHOCYTES # (AUTO) 1.3 (1.0-3.2); LYMPHOCYTES % 27.8 % (18.0-39.1); MEAN CORPUSCULAR HEMOGLOBIN 33.4 pg (28-32); MEAN CORPUSCULAR HGB CONC 34.8 g/dL (31-35); MEAN CORPUSCULAR VOLUME 95.9 fL (81-99); MONOCYTES # (AUTO) 0.4 (0.2-0.8); MONOCYTES % 8.2 % (4.4-11.3); NEUTROPHILS # (AUTO) 2.7 (2.1-6.9); NEUTROPHILS % 60.3 % (38.7-80.0); PLATELET COUNT 128 x10e3/uL (140-360); RED BLOOD COUNT 4.67 x10e6/uL (4.3-5.7); RED CELL DISTRIBUTION WIDTH 12.6 % (11.7-14.4); WHITE BLOOD COUNT 4.53 x10e3/uL (4.8-10.8)
[~2024-01-08 08:26] MED LIST changes: +OXYBUTYNIN CHLOR5 MG PO; +UROGESIC-BLUE1 EACH
[2024-01-08] MEDS: CEFAZOLIN SODIUM 2 GM ONE (09:06)
[2024-01-08] MEDS: DEXAMETHASONE SOD PHOS 10 MG/1 ML VIAL ONE (09:07)
[2024-01-08] MEDS: CELECOXIB 200 MG CAP ONE (09:07)
[2024-01-08] MEDS: GABAPENTIN 300 MG CAP ONE (09:08)
[2024-01-08] MEDS: LACTATED RINGER'S 1,000 ML ONE (09:09)
[2024-01-08] MEDS ORDERED: SODIUM CHLORIDE 0.9% 500ML 500 ML ONE (10:39)
[2024-01-08] MEDS ORDERED: Vancomycin IV 500 MG ONE (10:39)
[2024-01-08] MEDS ORDERED: TRANEXAMIC ACID 20 ML ONE (10:39)
[2024-01-08] MEDS ORDERED: FENTANYL CITRATE/PF 100MCG/2 ML INJ ONE ×2 (10:41→12:43)
[2024-01-08] MEDS ORDERED: MIDAZOLAM HCL 2 MG/2 ML VIAL ONE (10:41)
[2024-01-08 12:30] VITALS: TEMP 97
[2024-01-08] MEDS ORDERED: ONDANSETRON HCL INJ 2MG/ML 2ML 2 MG/ML VIAL IV PRN (12:30)
[2024-01-08] MEDS ORDERED: HYDROCODONE/APAP 7.5MG-325MG 1 EA TAB PO PRN (12:30)
[2024-01-08] MEDS ORDERED: DIPHENHYDRAMINE HCL INJ 50 MG/ML VIAL IV PRN (12:30)
[2024-01-08] MEDS ORDERED: HYDROCODONE/APAP 5MG-325MG TAB PO PRN (12:30)
[2024-01-08] MEDS ORDERED: DOCUSATE SODIUM 100 MG CAP PO PRN (12:30)
[2024-01-08] MEDS ORDERED: SODIUM CHLORIDE 0.9% 1000ML 1,000 ML IV SCH (12:30)
[2024-01-08] MEDS ORDERED: DEXAMETHASONE SOD PHOS INJ 4 MG/ML SDV ONE (12:32)
[2024-01-08] MEDS ORDERED: PROPOFOL IV EMULSION 10 MG/ML 20 ML VIAL ONE (12:32)
[2024-01-08] MEDS ORDERED: LIDOCAINE HCL 2% LOCAL INJ 5 ML SDV VIAL INJ ONE (12:32)
[2024-01-08] MEDS ORDERED: SEVOFLURANE INHAL SOLN 250 ML PEN BTL ONE (12:32)
[2024-01-08] MEDS ORDERED: ONDANSETRON HCL INJ 2MG/ML 2ML 2 MG/ML VIAL ONE (12:32)
[2024-01-08] MEDS ORDERED: ROPIVACAINE 0.5% 5 MG/ML 30 ML SDV ONE (12:34)
[2024-01-08] MEDS ORDERED: DEXAMETHASONE SOD PHOS 10 MG/1 ML VIAL ONE (12:34)
[2024-01-08] MEDS: HYDROCODONE/APAP 7.5MG-325MG 1 EA TAB PO ONE (13:13)
[2024-01-08] MEDS ORDERED: HYDROCODONE/APAP 7.5MG-325MG 1 EA TAB ONE (13:17)
[2024-01-08 14:30] VITALS: BP 123/65; PULSE 67; RESP 16; O2SAT 97
[2024-01-08] MEDS ORDERED: CELECOXIB 100 MG CAP PO SCH (17:00)
[2024-01-08] MEDS ORDERED: ASPIRIN 325 MG TAB PO SCH (17:00)
[2024-01-09] MEDS ORDERED: ACETAMINOPHEN 1000 MG/100 ML IV PRN (12:30)
== END 2024-01-08 15:08 | disposition home health service (06) ==
LOC: OR 08:26 → PACU V 12:41
PROVIDERS: ADMIT Specialist; ATTEND Specialist
DX: M17.12 Unilateral primary osteoarthritis, left knee (principal); M25.762 Osteophyte, left knee; E03.9 Hypothyroidism, unspecified; Z88.6 Allergy status to analgesic agent; Z88.8 Allergy status to other drugs, medicaments and biological substances; Z01.810 Encounter for preprocedural cardiovascular examination; Z01.812 Encounter for preprocedural laboratory examination; Z01.818 Encounter for other preprocedural examination; Z79.899 Other long term (current) drug therapy
CPT/HCPCS: 27447; 36415; 71046; 73560; 85025; 86850; 86900; 93005; 97116; 97161; C1713 ×2; C1776 ×3; G0378; J0171; J0690; J1100 ×2; J2001; J2250; J2405; J2704; J2795; J3010; J3370; J7040; J7121